=== PATIENT | male | born 1970 | race African-American/Black ===

== ENCOUNTER → 2019-01-30 | Outpatient (CLI) | payer BC ==
[2019-01-30 13:38] LABS: Basophils # (A) 0.1 k/uL (0-0.2); Basophils % (A) 1 %; Eosinophils # (A) 0.1 k/uL (0-0.7); Eosinophils % (A) 1 %; HGB 15.5 gm/dL (13.0-17.5); Lymphocytes # (A) 1.5 k/uL (1.0-4.8); Lymphocytes % (A) 13 %; MCH 28.4 pg (25.0-35.0); MCHC 32.4 g/dL (31.0-37.0); MCV 87.8 fL (80.0-100.0); Mean Platelet Volume 7.3; Monocytes # (A) 0.4 k/uL (0-1.0); Monocytes % (A) 4 %; Neutrophils # (A) 9.3 k/uL (1.3-7.7); Neutrophils % (A) 81 %; Platelet Count 331 k/uL (150-450); RBC 5.46 m/uL (4.30-5.90); RDW 13.4 % (11.5-15.5); WBC 11.5 k/uL (3.8-10.6)
[2019-01-30 19:22] LABS: African American GFR (CKD) 122.4 (60.0-200.0); Albumin 5.1 g/dL (3.80-4.90); Albumin/Globulin Ratio 2.32 (1.60-3.17); BUN/Creat Ratio 12.5 Ratio (12.00-20.00); Globulin 2.2 g/dL (1.6-3.3); LDL Cholesterol,Calculated 128.6 mg/dL (0.0-131.0); Potassium 4.6 mmol/L (3.5-5.5); Total Bilirubin 0.7 mg/dL (0.2-1.2); Total Protein 7.3 g/dL (6.2-8.2); VLDL Calculation 40.4 mg/dL (5.00-40.00)
[2019-01-30 20:10] LABS: HIV 1 AB Non-Reactive (Non-Reactive); HIV AB P24 Non-Reactive (Non-Reactive); HIV P24 AG Non-Reactive (Non-Reactive)
== END | disposition home or self-care (01) ==
LOC: LABWHC1 13:05
PROVIDERS: ATTEND Nurse Practitioner Women's Health
DX: I10 Essential (primary) hypertension (principal); R10.9 Unspecified abdominal pain; R53.83 Other fatigue
CPT/HCPCS: 36415; 80053; 80061; 80074; 82150; 83690; 84439; 84443; 85025; 87390

== ENCOUNTER → 2019-05-16 | Outpatient (CLI) | payer BC ==
[2019-05-16 11:54] LABS: Basophils # (A) 0.1 k/uL (0-0.2); Basophils % (A) 1 %; Eosinophils # (A) 0.1 k/uL (0-0.7); Eosinophils % (A) 2 %; HCT 41.4 % (39.0-53.0); HGB 13.9 gm/dL (13.0-17.5); Lymphocytes % (A) 35 %; MCH 29.4 pg (25.0-35.0); MCHC 33.5 g/dL (31.0-37.0); MCV 87.8 fL (80.0-100.0); Mean Platelet Volume 6.1; Monocytes # (A) 0.3 k/uL (0-1.0); Monocytes % (A) 5 %; Neutrophils # (A) 3.1 k/uL (1.3-7.7); Neutrophils % (A) 55 %; Platelet Count 337 k/uL (150-450); RBC 4.72 m/uL (4.30-5.90); RDW 13.1 % (11.5-15.5); WBC 5.6 k/uL (3.8-10.6)
[2019-05-16 12:16] LABS: Appearance,Urine Clear (Clear); Bilirubin,Urine Negative (Negative); Blood,Urine Negative (Negative); Color,Urine Colorless; Glucose,Urine (UA) Negative (Negative); Ketones,Urine Negative (Negative); Leukocyte Esterase,Urine Negative (Negative); Nitrite,Urine Negative (Negative); PH, Urine 6.5 (5.0-8.0); Protein,Urine Negative (Negative); Specific Gravity,Urine 1.003 (1.001-1.035); Urobilinogen,Urine <2.0 mg/dL (<2.0)
[2019-05-16 23:09] LABS: African American GFR (CKD) 129.3 (60.0-200.0); Albumin 4.6 g/dL (3.80-4.90); Albumin/Globulin Ratio 2.3 (1.60-3.17); Anion Gap 5.7 mmol/L (4.00-12.00); Calcium 9.3 mg/dL (8.7-10.3); Carbon Dioxide 28.3 mmol/L (21.6-31.8); Non-African American GFR(CKD) 111.6 (60.0-200.0); Potassium 3.9 mmol/L (3.5-5.5); Total Bilirubin 0.6 mg/dL (0.2-1.2); Total Protein 6.6 g/dL (6.2-8.2)
== END | disposition home or self-care (01) ==
LOC: LABWHC1 11:22
PROVIDERS: ATTEND Neurological Surgery
DX: M50.10 Cervical disc disorder with radiculopathy, unspecified cervical region (principal)
CPT/HCPCS: 36415; 80053; 81003; 85025; 85730; 87070

== ENCOUNTER → 2020-07-18 | Outpatient (CLI) | payer BC ==
--- NOTE | 2020-07-19 11:00 | XR ---
EXAMINATION TYPE: XR cervical spine comp DATE OF EXAM: 07/18/2020 CLINICAL HISTORY: pain COMPARISON: NONE TECHNIQUE: Frontal, lateral, oblique, swimmers, and open mouth view of the cervical spine are obtaine d. FINDINGS: Postsurgical changes of anterior cervical discectomy and fusion at C 6-7. With intervertebr al stabilizer. Alignment is anatomic. Moderate degenerative narrowing noted at C5-6. Mild degenerativ e narrowing at C4-5 C7-T1. IMPRESSION: Postoperative changes as noted.
== END | disposition home or self-care (01) ==
LOC: RADXRMAIN 15:38
PROVIDERS: ATTEND Family Medicine
DX: M54.12 Radiculopathy, cervical region (principal); Z98.890 Other specified postprocedural states; Z98.1 Arthrodesis status
CPT/HCPCS: 72050

== ENCOUNTER 2022-12-13 09:18 | Day surgery (SDC) | payer OTHER ==
[2022-12-12 09:29] VITALS: BMI 22.1
[~2022-12-13 09:18] MED LIST: LACTATED RINGERS 1,000 ML IV SCH; LIDOCAINE 1% (10MG/ML) FOR IV START INTRADERMA PRN
[2022-12-13] MEDS ORDERED: LACTATED RINGERS 1,000 ML IV ONE (10:52)
[2022-12-13 10:58] VITALS: TEMP 97.6
[2022-12-13 11:17] LABS: Basophils % (A) 1 %; Eosinophils # (A) 0.1 k/uL (0-0.7); Eosinophils % (A) 2 %; HCT 45.8 % (39.0-53.0); HGB 15.2 gm/dL (13.0-17.5); Lymphocytes # (A) 1.5 k/uL (1.0-4.8); Lymphocytes % (A) 34 %; MCHC 33.2 g/dL (31.0-37.0); MCV 87.3 fL (80.0-100.0); Mean Platelet Volume 8.2; Monocytes # (A) 0.3 k/uL (0-1.0); Monocytes % (A) 7 %; Neutrophils # (A) 2.3 k/uL (1.3-7.7); Neutrophils % (A) 54 %; Platelet Count 290 k/uL (150-450); RBC 5.24 m/uL (4.30-5.90); RDW 12.8 % (11.5-15.5); WBC 4.3 k/uL (3.8-10.6)
[2022-12-13 11:43] LABS: ALT 43 U/L (4-49); AST 36 U/L (17-59); African American GFR (CKD) >90 (>60 ml/min/1.73 sqM); Albumin 4.8 g/dL (3.5-5.0); Alkaline Phosphatase 77 U/L (38-126); Anion Gap 6 mmol/L; Blood Urea Nitrogen 7 mg/dL (9-20); Calcium 9.9 mg/dL (8.4-10.2); Carbon Dioxide 33 mmol/L (22-30); Chloride 104 mmol/L (98-107); Glucose 110 mg/dL (74-99); Non-African American GFR(CKD) >90 (>60 ml/min/1.73 sqM); Potassium 4.3 mmol/L (3.5-5.1); Sodium 143 mmol/L (137-145); Total Bilirubin 1.1 mg/dL (0.2-1.3); Total Protein 7.9 g/dL (6.3-8.2)
--- NOTE | 2022-12-13 11:46 | P.GSHP ---
History of Present Illness H&P Date: 12/13/22 Chief Complaint: screening colonoscopy this a 52-year-old male presents today for screening colonoscopy. Patient denies a significant GI complaints. Past Medical History History of Any Multi-Drug Resistant Organisms: None Reported Past Surgical History: Orthopedic Surgery Additional Past Surgical History / Comment(s): 2019 neck fusion cage cervical, knee sx (right) Past Anesthesia/Blood Transfusion Reactions: No Reported Reaction Additional Past Anesthesia/Blood Transfusion Reaction / Comment(s): no blood transfusion Smoking Status: Current every day smoker - Past Family History Father Family Medical History: Cancer Medications and Allergies Home Medications Medication Instructions Recorded Confirmed Type amLODIPine [Norvasc] 10 mg PO DAILY 12/12/22 12/12/22 History lisinopriL [Zestril] 5 mg PO DAILY 12/12/22 12/12/22 History Allergies Allergy/AdvReac Type Severity Reaction Status Date / Time No Known Allergies Allergy Verified 12/12/22 09:20 Surgical - Exam Vital Signs Temp Pulse Resp BP Pulse Ox 97.6 F 67 18 143/87 99 12/13/22 10:56 12/13/22 10:56 12/13/22 10:56 12/13/22 10:56 12/13/22 10:56 - General well developed, well nourished, no distress - Eyes PERRL - ENT normal pinna - Neck no masses - Respiratory normal expansion - Cardiovascular Rhythm: regular - Abdomen Abdomen: soft, non tender Results - Labs 12/13/22 11:06 12/13/22 11:06 Abnormal Lab Results - Last 24 Hours (Table) 12/13/22 Range/Units 11:06 Carbon Dioxide 33 H (22-30) mmol/L BUN 7 L (9-20) mg/dL Creatinine 0.60 L (0.66-1.25) mg/dL Glucose 110 H (74-99) mg/dL Diabetes panel 12/13/22 Range/Units 11:06 Sodium 143 (137-145) mmol/L Potassium 4.3 (3.5-5.1) mmol/L Chloride 104 (98-107) mmol/L Carbon Dioxide 33 H (22-30) mmol/L BUN 7 L (9-20) mg/dL Creatinine 0.60 L (0.66-1.25) mg/dL Glucose 110 H (74-99) mg/dL Calcium 9.9 (8.4-10.2) mg/dL AST 36 (17-59) U/L ALT 43 (4-49) U/L Alkaline Phosphatase 77 (38-126) U/L Total Protein 7.9 (6.3-8.2) g/dL Albumin 4.8 (3.5-5.0) g/dL Calcium panel 12/13/22 Range/Units 11:06 Calcium 9.9 (8.4-10.2) mg/dL Albumin 4.8 (3.5-5.0) g/dL Pituitary panel 12/13/22 Range/Units 11:06 Sodium 143 (137-145) mmol/L Potassium 4.3 (3.5-5.1) mmol/L Chloride 104 (98-107) mmol/L Carbon Dioxide 33 H (22-30) mmol/L BUN 7 L (9-20) mg/dL Creatinine 0.60 L (0.66-1.25) mg/dL Glucose 110 H (74-99) mg/dL Calcium 9.9 (8.4-10.2) mg/dL Adrenal panel 12/13/22 Range/Units 11:06 Sodium 143 (137-145) mmol/L Potassium 4.3 (3.5-5.1) mmol/L Chloride 104 (98-107) mmol/L Carbon Dioxide 33 H (22-30) mmol/L BUN 7 L (9-20) mg/dL Creatinine 0.60 L (0.66-1.25) mg/dL Glucose 110 H (74-99) mg/dL Calcium 9.9 (8.4-10.2) mg/dL Total Bilirubin 1.1 (0.2-1.3) mg/dL AST 36 (17-59) U/L ALT 43 (4-49) U/L Alkaline Phosphatase 77 (38-126) U/L Total Protein 7.9 (6.3-8.2) g/dL Albumin 4.8 (3.5-5.0) g/dL Assessment and Plan Assessment: we'll perform screening colonoscopy
[2022-12-13] MEDS ORDERED: PROPOFOL 10 MG/ML 20 ML VIAL IV ONE (11:48)
--- NOTE | 2022-12-13 12:05 | P.OP ---
Date of Procedure: 12/13/22 Preoperative Diagnosis: screening colonoscopy Postoperative Diagnosis: normal colonoscopy Procedure(s) Performed: colonoscopy Anesthesia: MAC Surgeon: Alan Ordonez Pathology: none sent Condition: stable Disposition: PACU Description of Procedure: PROCEDURE: The patient was placed on the endoscopy table in the lateral position. Digital rectal examination was performed which revealed no abnormalities. The prostate was symmetrical without nodules. Flexible colonoscope was then placed in the patient's anus and passed throughout the entire colon. The ileocecal valve was visualized. The cecum, ascending, transverse, descending and sigmoid colon were normal. The rectum was normal as well. There were no masses, polyps or diverticula noted in the entire colon. SUMMARY OF FINDINGS: Normal colonoscopy.
[2022-12-13 12:34] VITALS: BP 119/53; PULSE 82; RESP 16
[2022-12-13 17:25] LABS: Chol/HDL Ratio 3.18 Ratio; LDL Cholesterol,Calculated 106.5 mg/dL (0.0-131.0)
== END 2022-12-13 12:45 | disposition home or self-care (01) ==
LOC: ORWHC2ENDO 09:18
PROVIDERS: ATTEND Surgery
DX: Z12.11 Encounter for screening for malignant neoplasm of colon (principal); I10 Essential (primary) hypertension; F17.200 Nicotine dependence, unspecified, uncomplicated; Z79.899 Other long term (current) drug therapy
CPT/HCPCS: 45378; 84153; 80061; 80053; 84443; 85025; J2704

== ENCOUNTER → 2022-12-21 | Outpatient (CLI) | payer OTHER ==
--- NOTE | 2022-12-21 14:36 | XR ---
EXAMINATION TYPE: XR knee complete LT DATE OF EXAM: 12/21/2022 2:09 PM INDICATION: Patient age:Male; 52 years old; Reason for study: M25.562 Pain left knee; [facility]. COMPARISON: None. TECHNIQUE: The Left knee(s) was examined in Frontal, lateral and oblique projections. FINDINGS: No evidence of any acute osseous pathology, soft tissue swelling, or joint effusion is no nataly. Tricompartmental osteophyte formation involving the femoral condyles, tibial plateau and patella. Mi ld joint space narrowing. A fabella is present. IMPRESSION: 1. No acute osseous pathology. 2. Mild tricompartmental osteoarthritic changes.
== END | disposition home or self-care (01) ==
LOC: RADXRMAIN 13:56
PROVIDERS: ATTEND Family Medicine
DX: M17.12 Unilateral primary osteoarthritis, left knee (principal)

== ENCOUNTER → 2023-10-30 | Outpatient (CLI) | payer OTHER ==
--- NOTE | 2023-11-04 23:56 | XR ---
EXAMINATION TYPE: XR hand complete RT DATE OF EXAM: 10/30/2023 COMPARISON: NONE HISTORY: 53-year-old male second metacarpal area pain for one and half weeks. M79.641 PAIN RIGHT IVY D TECHNIQUE: 3 views FINDINGS: No acute fracture, subluxation, dislocation. Joint spaces are maintained. No periostitis or osteolysis. IMPRESSION: No acute osseous abnormality seen.
== END | disposition home or self-care (01) ==
LOC: RADXRMAIN 17:29
PROVIDERS: ATTEND Family Medicine
DX: Z00.00 Encounter for general adult medical examination without abnormal findings (principal); M79.641 Pain in right hand

== ENCOUNTER → 2023-12-06 | Outpatient (CLI) | payer OTHER ==
[2023-12-06 15:32] LABS: Basophils # (A) 0.05 X 10*3/uL (0.00-0.10); Eosinophils # (A) 0.11 X 10*3/uL (0.04-0.35); Eosinophils % (A) 2.2 %; HCT 41.6 % (39.6-50.0); HGB 13.8 g/dL (13.0-17.0); Lymphocytes % (A) 36.4 %; MCH 28.8 pg (27.0-32.0); MCHC 33.2 g/dL (32.0-37.0); MCV 86.8 FL (80.0-97.0); Mean Platelet Volume 11.1 FL (9.5-12.2); Monocytes # (A) 0.52 X 10*3/uL (0.20-1.00); Monocytes % (A) 10.5 %; NRBC Per 100 WBC 0 X 10*3/uL (0.00-0.01); Neutrophils # (A) 2.46 X 10*3/uL (1.80-7.70); Neutrophils % (A) 49.7 %; Platelet Count 219 X 10*3/uL (140-440); RBC 4.79 X 10*6/uL (4.40-5.60); RDW 13.4 % (11.5-14.5); WBC 4.95 X 10*3/uL (4.50-10.00)
[2023-12-06 15:51] LABS: ALT 42 U/L (10-49); AST 32 U/L (14-35); Albumin 4.9 g/dL (3.8-4.9); Albumin/Globulin Ratio 2.13 Ratio (1.60-3.17); Alkaline Phosphatase 83 U/L (41-126); BUN/Creat Ratio 13.83 Ratio (12.00-20.00); Blood Urea Nitrogen 8.3 mg/dL (9.0-27.0); Calcium 10.1 mg/dL (8.7-10.3); Carbon Dioxide 25.6 mmol/L (21.6-31.8); Chloride 103 mmol/L (96-109); Chol/HDL Ratio 2.96 Ratio; Globulin 2.3 g/dL (1.6-3.3); Glucose 107 mg/dL (70-110); LDL Cholesterol,Calculated 101.9 mg/dL (0.0-131.0); Potassium 4.4 mmol/L (3.5-5.5); Sodium 141 mmol/L (135-145); Total Protein 7.2 g/dL (6.2-8.2)
== END | disposition home or self-care (01) ==
LOC: LABWHC1 09:57
PROVIDERS: ATTEND Nurse Practitioner Family
DX: Z00.00 Encounter for general adult medical examination without abnormal findings (principal); I10 Essential (primary) hypertension; N40.0 Benign prostatic hyperplasia without lower urinary tract symptoms; M79.643 Pain in unspecified hand; R53.83 Other fatigue; Z79.899 Other long term (current) drug therapy
CPT/HCPCS: 36415; 80053; 80061; 82306; 84153; 84443; 85025

== ENCOUNTER 2024-10-25 07:40 | Emergency (ER) | payer OTHER ==
[2024-10-25] MEDS: HYDROcodone/APAP 10-325MG 1 EACH TAB PO ONE (07:57)
[2024-10-25] MEDS: KETOROLAC 15 MG/ML 1 ML VIAL IM STA (07:58)
--- NOTE | 2024-10-25 07:58 | ED ---
Fall HPI - General Chief Complaint: Fall Stated Complaint: Rib Pain Time Seen by Provider: 10/25/24 07:50 Source: patient, RN notes reviewed Mode of arrival: ambulatory Limitations: no limitations - History of Present Illness Initial Comments: This is a 54 year old male who presents to the emergency department for right sided rib cage pain. Patient states that 3 days ago he tripped and fell from a couple of feet up, landing on his snowblower before falling on the ground. States that his right rib cage took the impact. Denies hitting his head or diaz staining any other injuries. He had some initial soreness afterwards, however states that the pain got much worse last night and this morning. It is painful to breathe as well. Denies any pain going to the abdomen, nausea/vomiting, or changes in bowel/bladder habits. He tried taking a tramadol, however this did not effectively help his pain. MD Complaint: fall - Related Data Home Medications Medication Instructions Recorded Confirmed amLODIPine [Norvasc] 10 mg PO DAILY 12/12/22 12/12/22 lisinopriL [Zestril] 5 mg PO DAILY 12/12/22 12/12/22 Previous Rx's Medication Instructions Recorded Ibuprofen 800 mg PO Q8H PRN #30 tab 10/25/24 Lidocaine 5% Patch [Lidoderm 5% 1 patch TOPICAL DAILY PRN #30 patch 10/25/24 Patch] methocarbamoL [Robaxin-750] 1,500 mg PO TID PRN #30 tab 10/25/24 Allergies Allergy/AdvReac Type Severity Reaction Status Date / Time No Known Allergies Allergy Verified 10/25/24 07:49 Review of Systems ROS Statement: Those systems with pertinent positive or pertinent negative responses have been documented in the HPI. ROS Other: All systems not noted in ROS Statement are negative. Past Medical History History of Any Multi-Drug Resistant Organisms: None Reported Past Surgical History: Orthopedic Surgery Additional Past Surgical History / Comment(s): 2019 neck fusion cage cervical, knee sx (right) Past Anesthesia/Blood Transfusion Reactions: No Reported Reaction Additional Past Anesthesia/Blood Transfusion Reaction / Comment(s): no blood transfusion Past Psychological History: No Psychological Hx Reported Smoking Status: Current every day smoker - Past Family History Father Family Medical History: Cancer General Exam Limitations: no limitations General appearance: alert, in no apparent distress Head exam: Present: atraumatic, normocephalic, normal inspection Respiratory exam: Present: normal lung sounds bilaterally, chest wall tenderness. Absent: respiratory distress, wheezes, rales, rhonchi, stridor Cardiovascular Exam: Present: regular rate, normal rhythm GI/Abdominal exam: Present: soft, normal bowel sounds. Absent: distended, tenderness, guarding, rebound, rigid Neurological exam: Present: alert, oriented X3, CN II-XII intact Psychiatric exam: Present: normal affect, normal mood Skin exam: Present: warm, dry, intact, normal color. Absent: rash Course Vital Signs 10/25/24 10/25/24 07:45 09:09 Temperature 98.4 F 98.3 F Pulse Rate 100 80 Respiratory 18 20 Rate Blood Pressure 161/94 132/83 O2 Sat by Pulse 97 98 Oximetry Medical Decision Making - Medical Decision Making This is a 54-year-old male who presents to the emergency department for right- sided rib cage pain. Was pt. sent in by a medical professional or institution? @ -No Did you speak to anyone other than the patient for history? @ -No Did you review nursing and triage notes? @ -I disagree with the comment about the pain being left-sided, it is all right-sided. Were old charts reviewed? @ -No Differential Diagnosis? @ -Rib fracture, rib contusion, pneumothorax, this is not meant to be an all- inclusive list. EKG interpreted by me (3pts min.)? @ -Not obtained X-rays interpreted by me (1pt min.)? @ -X-ray of the right rib cage and PA chest obtained. My interpretation identifies a right sided rib fracture. CT interpreted by me (1pt min.)? @ -Not obtained U/S interpreted by me (1pt. min.)? @ -Not obtained What testing was considered but not performed? (CT, X-rays, U/S, labs)? Why? @ -None What meds were considered but not given? Why? @ -None Did you discuss the management of the patient with other professionals? @ -No Did you reconcile home meds? @ -No Was smoking cessation discussed for >3mins.? @ -No Was critical care preformed (if so, how long)? @ -No Were there social determinants of health that impacted care today? How? (Homelessness, low income, unemployed, alcoholism, drug addiction, transportation, low edu. Level, literacy, decrease access to med. care, senior living, rehab)? @ -No Was there de-escalation of care discussed even if they declined? (Discuss DNR or withdrawal of care, Hospice)? @ -No What co-morbidities impacted this encounter? (DM, HTN, Smoking, COPD, CAD, Cancer, CVA, Hep., AIDS, mental health diagnosis, sleep apnea, morbid obesity)? @ -None Was patient admitted / discharged? @ -Discharged. X-ray of the right rib cage and PA chest obtained demonstrating fractures of ribs 9 and 10 on the right with mild displacement. Pain was treated in the emergency department. Ibuprofen, Robaxin, and lidocaine patches prescribed with dosing instructions reviewed. He is also advised to take several deep breaths an hour despite the pain to reduce the risk of developing a secondary pneumonia. Advised he follow-up with his PCP in the next couple of days for reevaluation. Patient discharged home in stable condition. Case discussed with ED attending Dr. Cedillo. Return precautions reviewed in depth, the patient is instructed to return to the emergency department with any new, worsening, or concerning symptoms. Patient verbalized understanding. Undiagnosed new problem with uncertain prognosis? @ -None Drug Therapy requiring intensive monitoring for toxicity (Heparin, Nitro, Insulin, Cardizem)? @ -None Were any procedures done? @ -None Diagnosis/symptom? @ -Right rib fractures Acute, or Chronic, or Acute on Chronic? @ -Acute Uncomplicated (without systemic symptoms) or Complicated (systemic symptoms)? @ -Uncomplicated Side effects of treatment? @ -None Exacerbation, Progression, or Severe Exacerbation] @ -Not applicable Poses a threat to life or bodily function? @ -No - Radiology Data Radiology results: report reviewed, image reviewed Disposition Clinical Impression: Fracture of rib of right side Disposition: HOME SELF-CARE Instructions (If sedation given, give patient instructions): Rib Fracture (ED) Additional Instructions: Return to the emergency department with any new, worsening, or concerning symptoms. Alternate with ibuprofen and Tylenol as needed for pain relief. Take the Robaxin as 1 to 2 tablets up to 3-4 times daily. You can also apply the lidocaine patches daily. Take several deep breaths an hour despite the pain to reduce the risk of developing a secondary pneumonia. Follow up with your primary care provider in 1-2 days. Prescriptions: Ibuprofen 800 mg PO Q8H PRN #30 tab PRN Reason: Pain Lidocaine 5% Patch [Lidoderm 5% Patch] 1 patch TOPICAL DAILY PRN #30 patch PRN Reason: Pain methocarbamoL [Robaxin-750] 1,500 mg PO TID PRN #30 tab PRN Reason: Pain Is patient prescribed a controlled substance at d/c from ED?: No Referrals: Olegario Galaviz MD [STAFF PHYSICIAN] - 1-2 days Time of Disposition: 09:18
[2024-10-25] MEDS: LIDOCAINE 4% PATCH TOPICAL ONE (08:00)
[2024-10-25] MEDS: methocarbamoL 750 MG TAB PO STA (08:09)
--- NOTE | 2024-10-25 08:47 | XR ---
EXAMINATION TYPE: XR ribs RT w pa chest xray DATE OF EXAM: 10/25/2024 8:09 AM COMPARISON: None CLINICAL INDICATION: Male, 54 years old with history of Pain after fall; PHH, pain TECHNIQUE: XR ribs RT w pa chest xray; Frontal and oblique views of the ribs with frontal chest radio graph. FINDINGS: Cortical step-offs of right ribs 9 and 10 with minimal displacement. No evidence additiona l of fracture. Overall, the lungs are clear. The cardiac silhouette is normal in size. The remainin g osseous structures are intact. IMPRESSION: Acute fractures of right ribs 9 and 10 with minimal displacement. [facility], , 10/25/2024 8:45 AM
[2024-10-25 09:12] VITALS: BP 132/83; PULSE 80; RESP 20; TEMP 98.3
[2024-10-25] MEDS ORDERED: MORPHINE SULFATE 4 MG/ML SYRINGE IM STA (09:18)
== END 2024-10-25 09:15 | disposition home or self-care (01) ==
LOC: EC 07:40
DX: S22.41XA Multiple fractures of ribs, right side, initial encounter for closed fracture (principal); F17.200 Nicotine dependence, unspecified, uncomplicated; W01.0XXA Fall on same level from slipping, tripping and stumbling without subsequent striking against object, initial encounter
CPT/HCPCS: 71101; 99284; 96372; J1885